=== PATIENT | female | born 1970 | race Caucasian/White ===

== ENCOUNTER → 2017-11-24 | Outpatient (CLI) | payer OTHER | END | disposition home or self-care (01) | LOC: CFH 11:38 | PROVIDERS: ATTEND Internal Medicine | DX: Z12.31 Encounter for screening mammogram for malignant neoplasm of breast (principal) | CPT/HCPCS: 77067 ==

== ENCOUNTER 2018-06-25 15:30 | Emergency (ER) | payer OTHER ==
[~2018-06-25] VITALS: Ht 172.7 cm; Wt 97.6 kg
[~2018-06-25 15:30] MED LIST: ALPR-475 PO; AMIT25TA PO; CHOL200074 PO; HYDR-3237 PO; MAGN300C PO; MULT400T7 PO; TOPI50TA35 PO; UBID30CA9 PO
[2018-06-25 16:14] LABS: MICROSCOPIC AUTO
[2018-06-25 16:15] LABS: CULTURE INDICATED? NO
[2018-06-25 16:38] LABS: BASOPHILS # (AUTO) 0.05 x10^3/uL (0-0.1); BASOPHILS % (AUTO) 0 % (0-1); EOSINOPHILS # (AUTO) 0.08 x10^3/uL (0-0.4); EOSINOPHILS % (AUTO) 1 % (1-7); LYMPHOCYTES # (AUTO) 2.17 x10^3/uL (1-3.4); LYMPHOCYTES % (AUTO) 18 % (22-44); MD NO; MEAN CORPUSCULAR HEMOGLOBIN 31.4 pg (27.0-34.8); MEAN CORPUSCULAR HGB CONC 34.1 g/dL (32.4-35.8); MEAN CORPUSCULAR VOLUME 91.9 fL (80-100); MEAN PLATELET VOLUME 9.1 fL (7.4-10.4); MONOCYTES # (AUTO) 0.63 x10^3/uL (0.2-0.8); MONOCYTES % (AUTO) 5 % (2-9); NEUTROPHILS # (AUTO) 9.16 x10^3/uL (1.8-6.8); NEUTROPHILS % (AUTO) 76 % (42-75); PLATELET COUNT 275 x10^3/uL (130-400); RED BLOOD COUNT 4.82 x10^6/uL (3.82-5.3)
[2018-06-25 16:49] LABS: CHLORIDE 111 mmol/L (98-107)
[2018-06-25 16:50] LABS: ALBUMIN 3.9 g/dL (3.4-5.0); ANION GAP 9 mmol/L (5-15); CALCIUM 8.3 mg/dL (8.5-10.1); CREATININE 1.31 mg/dL (0.55-1.02)
[2018-06-25] MEDS ORDERED: KETOROLAC 30 MG/1 ML IM ONE (17:00)
[2018-06-25] MEDS ORDERED: KETOROLAC 30 MG/1 ML ONE (17:18)
[2018-06-25 17:27] VITALS: BP 126/83
[2018-06-25] MEDS ORDERED: HYDROmorphone 2 MG/ML, 1ML IM ONE (17:30)
[2018-06-25] MEDS ORDERED: HYDROmorphone 2 MG/ML, 1ML ONE (17:36)
== END 2018-06-25 18:22 | disposition home or self-care (01) ==
LOC: ED 17:30
DX: N20.2 Calculus of kidney with calculus of ureter (principal); R31.9 Hematuria, unspecified; I10 Essential (primary) hypertension
CPT/HCPCS: 36415; 74018; 76770; 80048; 81001; 82040; 85025; 96372; 99285; J1170; J1885

== ENCOUNTER 2019-03-27 08:23 | Outpatient (CLI) | payer OTHER | END 2019-03-27 23:59 | disposition home or self-care (01) | LOC: CFH 08:23 | PROVIDERS: ATTEND Internal Medicine | DX: Z12.31 Encounter for screening mammogram for malignant neoplasm of breast (principal) | CPT/HCPCS: 77067 ==